=== PATIENT | male | born 1950 | race Caucasian/White ===

== ENCOUNTER 2019-04-10 11:24 | Emergency (ER) | payer MEDICARE, OTHER ==
[2019-04-10 12:06] VITALS: BP 176/112; PULSE 98
--- NOTE | 2019-04-10 12:18 | EDM.PDOC ---
ED HPI GENERAL MEDICAL PROBLEM - General Chief Complaint: Lower Extremity Injury/Pain Stated Complaint: lower leg/ankle pain left side Time Seen by Provider: 04/10/19 12:00 Source of Information: Reports: Patient, Family History Limitations: Reports: No Limitations - History of Present Illness INITIAL COMMENTS - FREE TEXT/NARRATIVE: 68-year-old male is in for an evaluation of an injury to his left lower leg. He has been struggling with a chronic Achilles strain or partial tear, and last night he missed the foot step on a stool and slipped off jamming his foot into the floor and sustaining an injury to the back of his left foot. He had swelling overnight and pain, this morning it seems better but he wanted to be checked. He is able to ambulate with some pain. No other injury. Onset: Sudden Duration: Hour(s): (Over 12 hours ago) Location: Reports: Lower Extremity, Left Worsens with: Reports: Other (Ambulating is painful) Associated Symptoms: Reports: Other (Fairly significant swelling of the lower left leg) - Related Data Allergies Allergy/AdvReac Type Severity Reaction Status Date / Time No Known Allergies Allergy Verified 04/10/19 11:46 Home Meds: Home Meds Insulin Glarg,Human.Rec.Analog [Lantus Solostar] 1 injection SQ BEDTIME [History] Insulin Lispro [Humalog] 1 injection SQ TID 12/26/13 [History] metFORMIN [Glucophage] 1 tab PO BID 12/26/13 [History] Past Medical History Endocrine/Metabolic History: Reports: Diabetes, Type II - Past Surgical History GI Surgical History: Reports: Appendectomy, Hernia, Inguinal Social & Family History - Tobacco Use Smoking Status *Q: Never Smoker Review of Systems - Review of Systems Review Of Systems: See Below Constitutional: Denies: Fever Respiratory: Denies: Shortness of Breath Cardiovascular: Denies: Chest Pain Skin: Denies: Bruising Neurological: Reports: Other (Significant peripheral neuropathy which is chronic ) ED EXAM, GENERAL - Physical Exam Exam: See Below Exam Limited By: No Limitations General Appearance: Alert, No Apparent Distress Head: Atraumatic Respiratory/Chest: No Respiratory Distress Extremities: Other (Exam is otherwise limited to the lower extremities. He has just a trace of edema around the ankle of the right leg, the left leg has 1+ edema through the foot and the lower extremity distal to the knee. He has palpation tenderness along the gastrocnemius and the proximal Achilles tendon, however there is no deficit. He has fairly strong plantar flexion of the foot with only mild discomfort.) Course - Vital Signs Last Recorded V/S: Last Vital Signs Temp 97.2 F 04/10/19 12:01 Pulse 98 04/10/19 12:01 Resp 20 04/10/19 12:01 BP 176/112 H 04/10/19 12:01 Pulse Ox 98 04/10/19 12:01 - Orders/Labs/Meds Orders: Active Orders 24 hr Category Date Time Status DME for Discharge [COMM] Stat Oth 04/10/19 12:13 Ordered - Re-Assessments/Exams Free Text/Narrative Re-Assessment/Exam: 04/10/19 12:17 I suspect this patient has acutely exacerbated a chronic Achilles tendon injury. I do not feel there is a complete tear. He was placed in a walking boot for the next several days, and then to follow-up with his primary care provider next week to reassess the injury. An MRI may be necessary for definitive diagnosis. Departure - Departure Time of Disposition: 12:47 Disposition: Home, Self-Care 01 Clinical Impression: Gastrocnemius strain, left Qualifiers: Encounter type: initial encounter Qualified Code(s): S86.112A - Strain of other muscle(s) and tendon(s) of posterior muscle group at lower leg level, left leg, initial encounter - Discharge Information Instructions: Muscle Strain, [id number] Referrals: PCP,None [Primary Care Provider] - Forms: ED Department Discharge Care Plan Goals: Wear boot for the next few days and increase activity as tolerated. Consider rechecking with your primary provider next week for reassessment to consider whether further testing is needed. Elevation and compression will help with swelling. Sepsis Event Note - Evaluation Sepsis Screening Result: No Definite Risk - Focused Exam Vital Signs: Vital Signs Temp Pulse Resp BP Pulse Ox 04/10/19 12:01 97.2 F 98 20 176/112 H 98 Date Exam was Performed: 04/10/19 Time Exam was Performed: 14:06 - My Orders Last 24 Hours: My Active Orders 04/10/19 12:13 DME for Discharge [COMM] Stat - Assessment/Plan Last 24 Hours: My Active Orders 04/10/19 12:13 DME for Discharge [COMM] Stat
== END 2019-04-10 12:47 | disposition home or self-care (01) ==
LOC: JP.ED 11:24
DX: S86.112A Strain of other muscle(s) and tendon(s) of posterior muscle group at lower leg level, left leg, initial encounter (principal); E11.9 Type 2 diabetes mellitus without complications; Z79.4 Long term (current) use of insulin; W01.0XXA Fall on same level from slipping, tripping and stumbling without subsequent striking against object, initial encounter; Y92.009 Unspecified place in unspecified non-institutional (private) residence as the place of occurrence of the external cause
CPT/HCPCS: 99283

== ENCOUNTER 2019-08-07 09:21 | Emergency (ER) | payer MEDICARE ==
--- NOTE | 2019-08-07 10:24 | EDM.PDOC ---
ED HPI GENERAL MEDICAL PROBLEM - General Chief Complaint: Neurological Problem Stated Complaint: DIZZY, NO BALANCE, HEART PALPS Time Seen by Provider: 08/07/19 09:50 Source of Information: Reports: Patient History Limitations: Reports: No Limitations - History of Present Illness INITIAL COMMENTS - FREE TEXT/NARRATIVE: This is a 68-year-old gentleman with a history of diabetes who presents with concerns of dizziness and palpitations. He reports he has been having intermittent dizziness after bending down to touch the ground while doing various tasks such as picking up branches for several months. He did see his PCP for this, but reports that did not do much of a work-up. They thought perhaps he had a middle ear infection. Today he was walking out of his home to do chores around the [place] he [place], after some time he stopped to bend down to chart picker a stick, and upon standing felt as if he is going to pass out and had difficulty walking because this was so profound. He reports that he took his pulse and it was bounding. He did not have any difficulty with coordination or gait, just profound feeling of passing out. He went to return to his home was able to walk normal for some time, and the sensation returned. He denies any chest pain with this. No shortness of breath. His symptoms are not reliably reproducible with position. He has no history of cardiac disease. No recent medication changes. In route to the hospital he had about a minute of chest pressure. He is rehabbing some injuries to his leg but otherwise feeling well. - Related Data Allergies Allergy/AdvReac Type Severity Reaction Status Date / Time statins Allergy Other Uncoded 08/07/19 10:55 Home Meds: Home Meds Insulin Glarg,Human.Rec.Analog [Lantus Solostar] 15 units SQ BEDTIME 12/26/13 [ History] Insulin Lispro [Humalog] 20 unit SQ BID 12/26/13 [History] metFORMIN [Glucophage] 500 mg PO BID 12/26/13 [History] Past Medical History Cardiovascular History: Reports: High Cholesterol Genitourinary History: Reports: Renal Calculus Endocrine/Metabolic History: Reports: Diabetes, Type II, Obesity/BMI 30+ - Past Surgical History GI Surgical History: Reports: Appendectomy, Hernia, Inguinal Social & Family History - Tobacco Use Smoking Status *Q: Never Smoker - Caffeine Use Caffeine Use: Reports: Coffee Other Caffeine Use: couple cups coffee daily - Recreational Drug Use Recreational Drug Use: No ED ROS GENERAL - Review of Systems Review Of Systems: See Below Constitutional: Reports: No Symptoms HEENT: Reports: No Symptoms Respiratory: Reports: No Symptoms. Denies: Shortness of Breath Cardiovascular: Reports: Palpitations. Denies: Dyspnea on Exertion Endocrine: Reports: No Symptoms GI/Abdominal: Reports: No Symptoms : Reports: No Symptoms Musculoskeletal: Reports: No Symptoms Skin: Reports: No Symptoms Neurological: Reports: No Symptoms. Denies: Trouble Speaking, Change in Speech , Gait Disturbance Psychiatric: Reports: No Symptoms Hematologic/Lymphatic: Reports: No Symptoms Immunologic: Reports: No Symptoms ED EXAM, GENERAL - Physical Exam Exam: See Below Exam Limited By: No Limitations General Appearance: Alert, No Apparent Distress Eye Exam: Bilateral Eye: EOMI Ears: Normal External Exam Nose: Normal Inspection Throat/Mouth: Normal Inspection Head: Atraumatic, Normocephalic Neck: Normal Inspection. No: Carotid Bruit Respiratory/Chest: Lungs Clear Cardiovascular: Regular Rate, Rhythm, No Murmur GI/Abdominal: Soft, Non-Tender Back Exam: Normal Inspection Extremities: Normal Inspection Neurological: Alert, Oriented, CN II-XII Intact, Other (Cranial nerves II through XII are grossly intact. Speech is fluid. Extraocular movements are intact without nystagmus. Finger-nose testing and rapid alternating hand movements are normal. Strength in the extremities is 5/5 and symmetric.) Skin Exam: Warm, Dry Course - Vital Signs Last Recorded V/S: Last Vital Signs Temp 36.2 C 08/07/19 13:16 Pulse 71 08/07/19 13:16 Resp 17 08/07/19 13:16 BP 133/69 08/07/19 13:16 Pulse Ox 96 08/07/19 13:16 - Orders/Labs/Meds Labs: Laboratory Tests 08/07/19 08/07/19 08/07/19 Range/Units 10:16 10:16 10:16 WBC 7.5 (4.5-11.0) K/uL RBC 5.14 (4.30-5.90) M/uL Hgb 15.1 H D (12.0-15.0) g/dL Hct 43.2 (40.0-54.0) % MCV 84 (80-98) fL MCH 29 (27-31) pg MCHC 35 (32-36) % Plt Count 201 (150-400) K/uL Sodium 136 L (140-148) mmol/L Potassium 4.2 (3.6-5.2) mmol/L Chloride 101 (100-108) mmol/L Carbon Dioxide 21 (21-32) mmol/L Anion Gap 18.2 H (5.0-14.0) mmol/L BUN 16 (7-18) mg/dL Creatinine 1.2 (0.8-1.3) mg/dL Est Cr Clr Drug Dosing 78.08 mL/min Estimated GFR (MDRD) > 60 (>60) Glucose 143 H (74-106) mg/dL Calcium 8.5 (8.5-10.1) mg/dL Total Bilirubin 0.6 (0.2-1.0) mg/dL AST 38 H D (15-37) U/L ALT 82 H (12-78) U/L Alkaline Phosphatase 91 (46-116) U/L Troponin I < 0.017 (0.000-0.056) ng/mL Total Protein 6.8 (6.4-8.2) g/dL Albumin 3.7 (3.4-5.0) g/dL Globulin 3.1 (2.3-3.5) g/dL Albumin/Globulin Ratio 1.2 (1.2-2.2) 08/07/19 Range/Units 13:00 WBC (4.5-11.0) K/uL RBC (4.30-5.90) M/uL Hgb (12.0-15.0) g/dL Hct (40.0-54.0) % MCV (80-98) fL MCH (27-31) pg MCHC (32-36) % Plt Count (150-400) K/uL Sodium (140-148) mmol/L Potassium (3.6-5.2) mmol/L Chloride (100-108) mmol/L Carbon Dioxide (21-32) mmol/L Anion Gap (5.0-14.0) mmol/L BUN (7-18) mg/dL Creatinine (0.8-1.3) mg/dL Est Cr Clr Drug Dosing mL/min Estimated GFR (MDRD) (>60) Glucose (74-106) mg/dL Calcium (8.5-10.1) mg/dL Total Bilirubin (0.2-1.0) mg/dL AST (15-37) U/L ALT (12-78) U/L Alkaline Phosphatase (46-116) U/L Troponin I < 0.017 (0.000-0.056) ng/mL Total Protein (6.4-8.2) g/dL Albumin (3.4-5.0) g/dL Globulin (2.3-3.5) g/dL Albumin/Globulin Ratio (1.2-2.2) Meds: Medications Discontinued Medications Generic Name Dose Route Start Last Admin Trade Name Aaron PRN Reason Stop Dose Admin Lactated Ringer's 1,000 mls @ 1,000 mls/hr 08/07/19 10:32 08/07/19 10:39 Ringers, Lactated IV 08/07/19 11:31 1,000 mls/hr BOLUS ONE Administration - Re-Assessments/Exams Free Text/Narrative Re-Assessment/Exam: This is a 68-year-old who presents with symptoms seemingly most consistent with presyncope. He does report an ongoing history of similar symptoms with change in position, so cannot exclude that he is describing vertigo. On exam he has normal vitals. He is completely neurologically intact. He has no murmur or carotid bruit. His EKG is generally unremarkable, sinus rhythm, no ischemia, does have some prolongation of QT. Given he had some chest pressure and his description of symptoms we will check a troponin to look for cardiac ischemia. We will also check his basic electrolytes and CBC. We will monitor him on telemetry. We will need to do an ambulatory laboratory trial and discuss delta troponin testing. 08/07/19 10:28 Free Text/Narrative Re-Assessment/Exam: Re-assess patient, feeling well. Labs re-assuring Would like to stay for delta troponin Will trial ambulation following fluid bolus 08/07/19 11:01 Free Text/Narrative Re-Assessment/Exam: Delta trop negative Ambulating with stable gait Symptoms largely resolved, some continued dizziness that seem position - this is seemingly more consistent with vertigo. Concern for posterior CVA low. Safe for discharge, will follow up with PCP 08/07/19 13:44 Departure - Departure Time of Disposition: 13:40 Disposition: Home, Self-Care 01 Clinical Impression: Vertigo Instructions: Near-Syncope, [id number], Dizziness Referrals: PCP,None [Primary Care Provider] - Forms: ED Department Discharge Additional Instructions: We did not find a cause for your symptoms on your work up in the ED We suspect you are experiencing vertigo A medication called meclizine may be useful for persistent symptoms, you can discuss this with your primary doctor Please return to the ER if you symptoms become more severe or are associated by difficulty with speech, weakness, or clumsiness Sepsis Event Note - Evaluation Sepsis Screening Result: No Definite Risk - Focused Exam Vital Signs: Vital Signs Temp Pulse Resp BP Pulse Ox 08/07/19 13:16 36.2 C 71 17 133/69 96 08/07/19 11:40 75 16 151/87 H 97 08/07/19 10:32 73 14 135/83 98 08/07/19 09:35 36.4 C 93 19 172/97 H 98 Date Exam was Performed: 08/07/19 Time Exam was Performed: 13:36
[2019-08-07] MEDS ORDERED: Lactated Ringers 1,000 ML IV ONE (10:32)
[2019-08-07 13:17] VITALS: BP 133/69; PULSE 71
== END 2019-08-07 14:22 | disposition home or self-care (01) ==
LOC: JP.ED 09:21
DX: R42 Dizziness and giddiness (principal); E11.9 Type 2 diabetes mellitus without complications; E66.9 Obesity, unspecified; Z68.33 Body mass index [BMI] 33.0-33.9, adult; Z79.4 Long term (current) use of insulin; Z88.8 Allergy status to other drugs, medicaments and biological substances
CPT/HCPCS: 36415; 80053; 84484; 85027; 96360; 99283; 99284; J7120; 93010

== ENCOUNTER 2020-09-17 18:57 | Emergency (ER) | payer MEDICARE ==
[2020-09-17 19:21] VITALS: BP 158/86; PULSE 78
--- NOTE | 2020-09-17 19:42 | EDM.PDOC ---
ED HPI GENERAL MEDICAL PROBLEM - General Chief Complaint: Genitourinary Problem Stated Complaint: UTI Time Seen by Provider: 09/17/20 19:42 Source of Information: Reports: Patient, RN Notes Reviewed History Limitations: Reports: No Limitations - History of Present Illness INITIAL COMMENTS - FREE TEXT/NARRATIVE: Samuel presents today for complains of burning and frequent urination for 3 to 5 days. He states he has been drinking more water, taking grapefruit seed extract and colloidal silver to help prevent infection. He states he now feels like he did when he had a urinary tract infection in the past. He denies fever, chills, nausea, vomiting, diarrhea, constipation or other concerns. Bladder Pain Score (Numeric/FACES): 8 - Related Data Allergies Allergy/AdvReac Type Severity Reaction Status Date / Time statins Allergy Other Uncoded 09/17/20 19:18 Home Meds: Home Meds Insulin Glarg,Human.Rec.Analog [Lantus Solostar] 15 units SQ BEDTIME 12/26/13 [History] Insulin Lispro [Humalog] 20 unit SQ DAILY 12/26/13 [History] metFORMIN [Glucophage] 500 mg PO BID 12/26/13 [History] Terazosin [Hytrin] 1 mg PO BEDTIME 09/17/20 [History] Past Medical History Cardiovascular History: Reports: High Cholesterol Genitourinary History: Reports: Prostate Disorder, Renal Calculus Musculoskeletal History: Reports: Other (See Below) Other Musculoskeletal History: torn achilles tendon Endocrine/Metabolic History: Reports: Diabetes, Type II, Obesity/BMI 30+ - Infectious Disease History Infectious Disease History: Reports: Chicken Pox, Measles, Mumps - Past Surgical History GI Surgical History: Reports: Appendectomy, Hernia, Inguinal Social & Family History - Tobacco Use Tobacco Use Status *Q: Never Tobacco User Second Hand Smoke Exposure: No - Caffeine Use Caffeine Use: Reports: Coffee, Soda Other Caffeine Use: couple cups coffee daily - Recreational Drug Use Recreational Drug Use: No ED ROS GENERAL - Review of Systems Review Of Systems: See Below Constitutional: Reports: No Symptoms HEENT: Reports: No Symptoms Respiratory: Reports: No Symptoms Cardiovascular: Reports: No Symptoms Endocrine: Reports: No Symptoms GI/Abdominal: Reports: No Symptoms : Reports: Dysuria, Frequency Musculoskeletal: Reports: No Symptoms Skin: Reports: No Symptoms Neurological: Reports: No Symptoms Psychiatric: Reports: No Symptoms Hematologic/Lymphatic: Reports: No Symptoms Immunologic: Reports: No Symptoms ED EXAM, RENAL/ - Physical Exam Exam: See Below Exam Limited By: Intoxication General Appearance: Alert, WD/WN, No Apparent Distress Head: Atraumatic, Normocephalic Cardiovascular: Normal Peripheral Pulses, Regular Rate, Rhythm, No Edema, No Gallop, No Murmur, No Rub GI/Abdominal: Normal Bowel Sounds, Soft, Non-Tender, No Organomegaly, No Distention, No Mass. No: Guarding, Rigid, Rebound, Tender (Male) Exam: Circumcised. No: Inguinal Lymphadenopathy, Penile Lesions, Rash, Scrotal Swelling, Scrotum Tenderness (L), Scrotum Tenderness (R), Suprapubic Fullness, Urethral Discharge Back Exam: Normal Inspection, Full Range of Motion. No: CVA Tenderness (R), CVA Tenderness (L), Muscle Spasm, Paraspinal Tenderness Extremities: Normal Inspection, Normal Range of Motion, Non-Tender, No Pedal Edema, Normal Capillary Refill Neurological: Alert, Oriented, Normal Cognition, Normal Gait, No Motor/Sensory Deficits Psychiatric: Normal Affect, Normal Mood Skin Exam: Warm, Dry, Intact, Normal Color, No Rash Lymphatic: No Adenopathy Course - Vital Signs Last Recorded V/S: Last Vital Signs Temp 36.5 C 09/17/20 19:20 Pulse 78 09/17/20 19:20 Resp 16 09/17/20 19:20 BP 158/86 H 09/17/20 19:20 Pulse Ox 97 09/17/20 19:20 - Orders/Labs/Meds Orders: Active Orders 24 hr Category Date Time Status CULTURE URINE [RM] Stat Lab 09/17/20 20:12 Received Labs: Laboratory Tests 09/17/20 Range/Units 19:10 Urine Color Yellow (YELLOW) Urine Appearance Clear (CLEAR) Urine pH 5.5 (5.0-8.0) Ur Specific [place] 1.020 (1.008-1.030) Urine Protein Negative (NEGATIVE) mg/dL Urine Glucose (UA) 500 H (NEGATIVE) mg/dL Urine Ketones Negative (NEGATIVE) mg/dL Urine Occult Blood Negative (NEGATIVE) Urine Nitrite Negative (NEGATIVE) Urine Bilirubin Negative (NEGATIVE) Urine Urobilinogen 0.2 (0.2-1.0) EU/dL Ur Leukocyte Esterase Negative (NEGATIVE) Urine RBC 0-5 (0-5) Urine WBC 0-5 (0-5) Ur Epithelial Cells Rare Amorphous Sediment Not seen Urine Bacteria Not seen Urine Mucus Not seen Patient lab work reviewed with patient. He was advised his current UA does not indicate need for antibiotic intervention. He was advised to monitor his blood sugar, work on diet and follow up with primary in 2 days. We will culture the urine as he has been taking herbal supplements for infection. Patient refuses further laboratory work up or additional care, requests antibiotic. He can take cephalexin as directed - higher bladder concentration of medication. Departure - Departure Time of Disposition: 20:07 Disposition: Home, Self-Care 01 Clinical Impression: Dysuria, Glucosuria - Discharge Information *PRESCRIPTION DRUG MONITORING PROGRAM REVIEWED*: No *COPY OF PRESCRIPTION DRUG MONITORING REPORT IN PATIENT ADAN: No Instructions: Dysuria Referrals: PCP,None [Primary Care Provider] - Forms: ED Department Discharge Additional Instructions: You have been evaluated and treated for dysuria. UA does not show active urinary tract infection with current use of grapefruit seed extract and colloidal silver. You can take cephalexin as directed, will need to stop use of culture negative. You do have elevated sugar in your urine. Work on management of diabetes, monitor blood sugars. Follow up with your primary provider for recheck in 3 days. Urine culture ordered. Return for any worsening, issues or concerns. Sepsis Event Note (ED) - Evaluation Sepsis Screening Result: No Definite Risk - Focused Exam Vital Signs: Vital Signs Temp Pulse Resp BP Pulse Ox 09/17/20 19:20 36.5 C 78 16 158/86 H 97 - My Orders Last 24 Hours: My Active Orders 09/17/20 20:12 CULTURE URINE [RM] Stat - Assessment/Plan Last 24 Hours: My Active Orders 09/17/20 20:12 CULTURE URINE [RM] Stat Assessment:: Dysuria Glucosuria Plan: Patient evaluated and treated for dysuria. UA does not show active urinary tract infection with current use of grapefruit seed extract and colloidal silver. He can take cephalexin as directed, will need to stop use of culture negative. Noted elevated sugar in your urine. Work on management of diabetes, monitor blood sugars. Follow up with primary provider for recheck in 3 days. Urine culture ordered. Return for any worsening, issues or concerns.
== END 2020-09-17 20:27 | disposition home or self-care (01) ==
LOC: JP.ED 18:57
DX: R30.0 Dysuria (principal); R81 Glycosuria; E11.9 Type 2 diabetes mellitus without complications; E66.9 Obesity, unspecified; Z68.32 Body mass index [BMI] 32.0-32.9, adult; Z91.048 Other nonmedicinal substance allergy status; Z79.4 Long term (current) use of insulin
CPT/HCPCS: 81001; 87086; 99283

== ENCOUNTER 2020-11-05 00:30 | Emergency (ER) | payer MEDICARE ==
--- NOTE | 2020-11-05 00:52 | EDM.PDOC ---
ED HPI GENERAL MEDICAL PROBLEM - General Chief Complaint: Genitourinary Problem Stated Complaint: TROUBLE URINATING Time Seen by Provider: 11/05/20 01:00 Source of Information: Reports: Patient History Limitations: Reports: No Limitations - History of Present Illness INITIAL COMMENTS - FREE TEXT/NARRATIVE: Samuel is a 70-year-old male presenting to the ED with difficulty urinating. Patient has had some issues on and off and underwent a biopsy of his prostate at [facility] in [place] where he was told he had "the largest prostate that that doctor and have her examined". The patient had been doing fine but today has been having difficulty urinating with the ability to only have a couple dribbles of urine at a time. He has had some burning with urination. The patient drank a fair amount of beet juice today so his urine is red but he does not believe that his blood. He denies any fever, chills, backache or flank pain. Has had no nausea, vomiting, or diarrhea. He has had no difficulty with constipation. - Related Data Allergies Allergy/AdvReac Type Severity Reaction Status Date / Time statins Allergy Other Uncoded 11/05/20 01:19 Home Meds: Home Meds Insulin Glarg,Human.Rec.Analog [Lantus Solostar] 15 units SQ BEDTIME 12/26/13 [History] Insulin Lispro [Humalog] 20 unit SQ DAILY 12/26/13 [History] metFORMIN [Glucophage] 500 mg PO BID 12/26/13 [History] Terazosin [Hytrin] 1 mg PO BEDTIME 09/17/20 [History] Past Medical History Cardiovascular History: Reports: High Cholesterol Genitourinary History: Reports: Prostate Disorder, Renal Calculus Musculoskeletal History: Reports: Other (See Below) Other Musculoskeletal History: torn achilles tendon Endocrine/Metabolic History: Reports: Diabetes, Type II, Obesity/BMI 30+ - Infectious Disease History Infectious Disease History: Reports: Chicken Pox, Measles, Mumps - Past Surgical History GI Surgical History: Reports: Appendectomy, Hernia, Inguinal Social & Family History - Caffeine Use Caffeine Use: Reports: Coffee, Soda Other Caffeine Use: couple cups coffee daily ED ROS GENERAL - Review of Systems Review Of Systems: See Below Constitutional: Reports: No Symptoms Respiratory: Reports: No Symptoms Cardiovascular: Reports: No Symptoms GI/Abdominal: Reports: Abdominal Pain (Suprapubic pain) : Reports: Dysuria (Burning with urination), Frequency (Only able to void small amounts), Pain, Urgency, Urinary Retention ED EXAM, RENAL/ - Physical Exam Exam: See Below Exam Limited By: No Limitations General Appearance: Alert, Anxious, Mild Distress GI/Abdominal: Soft, Tender (Suprapubic tenderness). No: Guarding, Rebound (Male) Exam: Circumcised, Suprapubic Fullness (The bladder percusses up to the umbilicus). No: Scrotal Swelling, Testicular Tenderness (L), Testicular Tenderness (R), Urethral Discharge Neurological: Alert, Oriented, Normal Cognition, No Motor/Sensory Deficits Course - Vital Signs Last Recorded V/S: Last Vital Signs Temp 36.3 C 11/05/20 01:25 Pulse 70 11/05/20 01:37 Resp 17 11/05/20 01:37 BP 120/75 11/05/20 01:37 Pulse Ox 97 11/05/20 01:37 - Orders/Labs/Meds Orders: Active Orders 24 hr Category Date Time Status Bravo Catheter Insertion [Insert Urinary Catheter] [OM. Care 11/05/20 01:15 Ordered PC] Q24H Urinary Catheter Assessment [RC] ASDIRECTED Care 11/05/20 01:01 Active Labs: Laboratory Tests 11/05/20 Range/Units 01:19 Urine Color Brown A (YELLOW) Urine Appearance Cloudy A (CLEAR) Urine pH 5.5 (5.0-8.0) Ur Specific [place] 1.015 (1.008-1.030) Urine Protein >=300 H (NEGATIVE) mg/dL Urine Glucose (UA) Negative (NEGATIVE) mg/dL Urine Ketones Negative (NEGATIVE) mg/dL Urine Occult Blood Large H (NEGATIVE) Urine Nitrite Negative (NEGATIVE) Urine Bilirubin Small H (NEGATIVE) Urine Urobilinogen 0.2 (0.2-1.0) EU/dL Ur Leukocyte Esterase Negative (NEGATIVE) Urine RBC >100 H (0-5) Urine WBC 0-5 (0-5) Ur Epithelial Cells Few Amorphous Sediment Not seen Urine Bacteria Few Urine Mucus Not seen Meds: Medications Discontinued Medications Generic Name Dose Route Start Last Admin Trade Name Freq PRN Reason Stop Dose Admin Lidocaine HCl 10 ml 11/05/20 01:01 Lidocaine 2% Jelly 10 Ml Urojet MUCMEM 11/05/20 01:02 ONETIME ONE Lidocaine HCl Confirm 11/05/20 01:01 Lidocaine 2% Jelly 10 Ml Urojet Administered 11/05/20 01:02 Dose 10 ml .ROUTE .[facility] - Re-Assessments/Exams Free Text/Narrative Re-Assessment/Exam: 11/05/20 01:18 Urojet was instilled into the urethra and a coud Bravo catheter was placed across the prostate into the bladder with immediate flow of reddish urine. We will send urinalysis to evaluate for possible infection. The patient will need to have the catheter left in place as he is having significant urinary retention with nearly 2 L of urine in the bladder on bladder scan. He will need to follow-up with the [facility] for evaluation with urology. 11/05/20 01:42 urinalysis shows significant hematuria without evidence of infection. Departure - Departure Time of Disposition: 01:42 Disposition: Home, Self-Care 01 Clinical Impression: Retention of urine Benign prostatic hyperplasia Qualifiers: Lower urinary tract symptom presence: symptoms present Lower urinary tract symptom detail: urinary retention Qualified Code(s): N40.1 - Benign prostatic hyperplasia with lower urinary tract symptoms - Discharge Information Instructions: Indwelling Urinary Catheter Care, Adult, Benign Prostatic Hyperplasia, Acute Urinary Retention, Male, [id number] Referrals: Haris Youngblood MD [Primary Care Provider] - Forms: ED Department Discharge Care Plan Goals: I have placed a consult for urology at the [facility]. Hopefully somebody from the clinic will contact you to arrange this. Please leave the catheter in place until your follow-up. Nursing will instruct you on management of the catheter. Your urinalysis today showed a fair amount of blood in your urine but no evidence for acute infection. Sepsis Event Note (ED) - Focused Exam Vital Signs: Vital Signs Temp Pulse Resp BP Pulse Ox 11/05/20 01:37 70 17 120/75 97 11/05/20 01:25 36.3 C 69 19 148/80 H 97 11/05/20 01:23 36.3 C 69 19 148/80 H 97 - Problem List & Annotations (1) Retention of urine SNOMED Code(s): 505036229 Code(s): R33.9 - RETENTION OF URINE, UNSPECIFIED Status: Acute Priority: Medium Current Visit: Yes (2) Benign prostatic hyperplasia SNOMED Code(s): 346211659 Code(s): N40.0 - BENIGN PROSTATIC HYPERPLASIA WITHOUT LOWER URINRY TRACT SYMP Status: Acute Priority: Medium Current Visit: Yes Qualifiers: Lower urinary tract symptom presence: symptoms present Lower urinary tract symptom detail: urinary retention Qualified Code(s): N40.1 - Benign prostatic hyperplasia with lower urinary tract symptoms; R33.8 - Other retention of urine - Problem List Review Problem List Initiated/Reviewed/Updated: Yes - My Orders Last 24 Hours: My Active Orders 11/05/20 01:01 Urinary Catheter Assessment [RC] ASDIRECTED 11/05/20 01:15 Bravo Catheter Insertion [Insert Urinary Catheter] [OM.PC] Q24H - Assessment/Plan Last 24 Hours: My Active Orders 11/05/20 01:01 Urinary Catheter Assessment [RC] ASDIRECTED 11/05/20 01:15 Bravo Catheter Insertion [Insert Urinary Catheter] [OM.PC] Q24H
[2020-11-05] MEDS ORDERED: Lidocaine 2% Jelly 10 ML Urojet ONE (01:01)
[2020-11-05] MEDS ORDERED: Lidocaine 2% Jelly 10 ML Urojet MUCMEM ONE (01:01)
[2020-11-05 01:37] VITALS: BP 120/75; PULSE 70
== END 2020-11-05 02:11 | disposition home or self-care (01) ==
LOC: JP.ED 00:30
DX: N40.1 Benign prostatic hyperplasia with lower urinary tract symptoms (principal); R33.9 Retention of urine, unspecified; E78.00 Pure hypercholesterolemia, unspecified; E11.9 Type 2 diabetes mellitus without complications; E66.9 Obesity, unspecified; Z68.30 Body mass index [BMI] 30.0-30.9, adult; Z88.8 Allergy status to other drugs, medicaments and biological substances; Z79.4 Long term (current) use of insulin; Z79.899 Other long term (current) drug therapy
CPT/HCPCS: 51702; 81001; 99283-25

== ENCOUNTER 2021-10-09 07:33 | Day surgery (SDC) | payer MEDICARE ==
[~2021-10-09 07:33] MED LIST: Bupivacaine 0.5% 50 ML MDV ONE; Lidocaine 1% with EPINEPHrine 1:100,000 50 ML MDV ONE; Midazolam 1 MG/ML 2 ML SDV ONE; Propofol 200 MG/20 ML SDV ONE; fentaNYL 100 MCG/2 ML SDV ONE
[2021-10-09] MEDS ORDERED: Acetaminophen 500 MG Tab PO ONE (07:45)
[2021-10-09] MEDS: Dextrose 5%-Lactated Ringers 1,000 ML IV SCH ×2 (08:13→22:42)
[2021-10-09] MEDS ORDERED: ceFAZolin 2 GM in Premix Bag 1 BAG IV ONE (08:30)
[2021-10-09 08:32] LABS: ESTIMATED GFR > 60 (>60)
[2021-10-09] MEDS ORDERED: fentaNYL 100 MCG/2 ML SDV ONE (09:43)
[2021-10-09] MEDS ORDERED: Propofol 200 MG/20 ML SDV ONE (09:44)
[2021-10-09] MEDS ORDERED: Ketorolac 30 MG/ML SDV ONE (10:27)
[2021-10-09] MEDS ORDERED: 50% Dextrose in Water 50 ML Syringe IVPUSH PRN ×3 (10:39→11:44)
[2021-10-09] MEDS ORDERED: Glucagon,Human Recombinant 1 MG Vial IM PRN ×2 (10:39→10:49)
[2021-10-09] MEDS ORDERED: Glucose Gel 15 GM in 37.5 GM Tube PO PRN (10:49)
[2021-10-09] MEDS ORDERED: Insulin Lispro 100 Unit/ML 3 ML KwikPen SUBCUT PRN (10:50)
[2021-10-09] MEDS ORDERED: Insulin Lispro 100 Unit/ML 3 ML KwikPen SUBCUT ONE (11:00)
[2021-10-09] MEDS ORDERED: HYDROmorphone 2 MG Tab PO PRN (11:43)
[2021-10-09] MEDS ORDERED: HYDROmorphone 1 MG/ML Syringe IV PRN (12:00)
[2021-10-09] MEDS ORDERED: HYDROmorphone 0.5 MG/0.5 ML Syringe IVPUSH PRN (12:00)
[2021-10-09] MEDS ORDERED: Ondansetron 4 MG/2 ML SDV IVPUSH PRN (12:00)
[2021-10-09] MEDS: Insulin Lispro 100 Unit/ML 3 ML KwikPen SUBCUT SCH ×2 (12:06→16:46)
[2021-10-09] MEDS: Acetaminophen 325 MG Tab PO SCH ×2 (12:09→18:19)
[2021-10-09] MEDS: ceFAZolin 2 GM in Premix Bag 1 BAG IV SCH (16:28)
[2021-10-09] MEDS: metFORMIN 500 MG Tab PO SCH (16:30)
[2021-10-10] MEDS: Acetaminophen 325 MG Tab PO SCH ×2 (00:36→05:31)
[2021-10-10] MEDS: ceFAZolin 2 GM in Premix Bag 1 BAG IV SCH ×2 (00:38→07:46)
[2021-10-10 07:31] VITALS: BP 126/68; PULSE 71
[2021-10-10] MEDS: metFORMIN 500 MG Tab PO SCH (07:46)
[2021-10-10] MEDS: Insulin Lispro 100 Unit/ML 3 ML KwikPen SUBCUT SCH (07:46)
== END 2021-10-10 10:00 | disposition home or self-care (01) ==
LOC: JP.SDS 07:33 → JP.ICU 11:33 → JP.SDS 10-10 10:00
PROVIDERS: ATTEND Surgery
DX: K40.31 Unilateral inguinal hernia, with obstruction, without gangrene, recurrent (principal); E78.1 Pure hyperglyceridemia; G47.33 Obstructive sleep apnea (adult) (pediatric); E66.9 Obesity, unspecified; E11.42 Type 2 diabetes mellitus with diabetic polyneuropathy; Z68.27 Body mass index [BMI] 27.0-27.9, adult; Z79.84 Long term (current) use of oral hypoglycemic drugs; Z79.899 Other long term (current) drug therapy; Z79.4 Long term (current) use of insulin; Z88.8 Allergy status to other drugs, medicaments and biological substances; Z95.810 Presence of automatic (implantable) cardiac defibrillator; Z86.79 Personal history of other diseases of the circulatory system
CPT/HCPCS: 36415; 49521; 80053; 82947; 83735; 83880; 84100; 85027; 88302; A9270; C1713; C1781; J0690; J1815; J1885; J2250; J2704; J3010; J3490; J7121

== ENCOUNTER → 2022-01-28 | Emergency (ER) | payer MEDICARE ==
[2022-02-22 11:21] LABS: ESTIMATED GFR 81 mL/min (>60); TROPONIN I HIGH SENSITIVITY 19.9 pg/mL (<=60.3)
== END ==
LOC: JP.ED 14:28
DX: R55 Syncope and collapse (principal)
CPT/HCPCS: 36415; 71045; 71045-26; 80048; 84484; 85025; 93005; 99284

== ENCOUNTER 2022-06-03 09:41 | Emergency (ER) | payer MEDICARE ==
[2022-06-03 11:36] VITALS: BP 132/76; PULSE 71
== END 2022-06-03 12:32 | disposition home or self-care (01) ==
LOC: JP.ED 09:41
DX: K57.32 Diverticulitis of large intestine without perforation or abscess without bleeding (principal); E11.40 Type 2 diabetes mellitus with diabetic neuropathy, unspecified; E66.9 Obesity, unspecified; Z68.37 Body mass index [BMI] 37.0-37.9, adult; Z88.8 Allergy status to other drugs, medicaments and biological substances; Z79.4 Long term (current) use of insulin; Z87.891 Personal history of nicotine dependence
CPT/HCPCS: 36415; 74176; 74176-26; 80048; 85025; 99283; 99284

== ENCOUNTER 2022-09-20 06:07 | Day surgery (SDC) | payer MEDICARE ==
[2022-09-20 06:32] LABS: HEMATOCRIT 46.2 % (38.4-49.7); HEMOGLOBIN 16.2 g/dL (12.9-16.9); MEAN CORPUSCULAR HEMOGLOBIN 30.2 pg (31.6-35.5); MEAN CORPUSCULAR HGB CONC 35.1 g/dL (31.6-35.5); RED BLOOD CELL COUNT 5.37 M/uL (4.14-5.76); WHITE BLOOD CELL COUNT,WBC 8.4 K/uL (3.2-11.0)
[2022-09-20] MEDS ORDERED: Bupivacaine 0.5% 50 ML MDV ONE (06:45)
[2022-09-20] MEDS ORDERED: Lidocaine 1% with EPINEPHrine 1:100,000 50 ML MDV ONE (06:45)
[2022-09-20] MEDS ORDERED: Bupivacaine 0.5%/EPINEPHrine 1:200,000 50 ML MDV ONE (06:50)
[2022-09-20] MEDS ORDERED: Midazolam 1 MG/ML 2 ML SDV ONE (06:53)
[2022-09-20] MEDS ORDERED: Propofol 200 MG/20 ML SDV ONE ×3 (06:53→08:56)
[2022-09-20] MEDS ORDERED: fentaNYL 100 MCG/2 ML SDV ONE ×2 (06:53→08:16)
[2022-09-20 06:54] LABS: A/G RATIO 1.2 (1.2-2.2); ALANINE AMINOTRANSFERASE,ALT 32 U/L (12-78); ALBUMIN 3.9 g/dL (3.4-5.0); ALKALINE PHOSPHATASE 86 U/L (46-116); ANION GAP 8.4 mmol/L (5.0-14.0); ASPARTATE AMNIOTRANSFERASE,AST 21 U/L (15-37); BILIRUBIN TOTAL 0.6 mg/dL (0.2-1.0); BLOOD UREA NITROGEN,BUN 20 mg/dL (7-18); CALCIUM 9.2 mg/dL (8.5-10.1); CARBON DIOXIDE,CO2 30 mmol/L (21-32); CHLORIDE,CL 103 mmol/L (100-108); EST CRCL DRUG DOSING (CG) 88.49 mL/min; ESTIMATED GFR 80 mL/min (>60); GLUCOSE RANDOM 153 mg/dL (74-106); POTASSIUM,K 4.4 mmol/L (3.6-5.2); PROTEIN TOTAL,TP 7.2 g/dL (6.4-8.2); SODIUM,NA 141 mmol/L (140-148)
[2022-09-20] MEDS: Sodium Chloride 0.9% 1,000 ML IV SCH ×2 (07:00→09:55)
[2022-09-20] MEDS ORDERED: metroNIDAZOLE/Normal Saline 500 MG in Premix Bag 1 BAG IV ONE (07:30)
[2022-09-20] MEDS ORDERED: Ropivacaine 50 ML, dexAMETHasone 8 MG, EPINEPHrine 0.4 MG, Sodium Chloride 0.9% 27.6 ML NERVRT SCH ×4 (07:45)
[2022-09-20] MEDS ORDERED: ceFAZolin 2 GM in Premix Bag 1 BAG IV ONE (08:00)
[2022-09-20] MEDS ORDERED: Ketorolac 30 MG/ML SDV ONE (08:31)
[2022-09-20] MEDS ORDERED: Acetaminophen/HYDROcodone 325-5 MG Tab PO PRN (10:31)
[2022-09-20 12:34] VITALS: BP 125/72; PULSE 82
== END 2022-09-20 13:30 | disposition home or self-care (01) ==
LOC: JP.SDS 06:07
PROVIDERS: ATTEND Surgery
DX: K40.30 Unilateral inguinal hernia, with obstruction, without gangrene, not specified as recurrent (principal); E11.42 Type 2 diabetes mellitus with diabetic polyneuropathy; G47.33 Obstructive sleep apnea (adult) (pediatric); N40.0 Benign prostatic hyperplasia without lower urinary tract symptoms; E66.3 Overweight; Z79.4 Long term (current) use of insulin; Z95.0 Presence of cardiac pacemaker; Z87.891 Personal history of nicotine dependence; Z98.890 Other specified postprocedural states; Z68.26 Body mass index [BMI] 26.0-26.9, adult
CPT/HCPCS: 36415; 49507; 80053; 85027; A9270; C1713; C1781; J0171; J0690; J1100; J1885; J2250; J2704; J2795; J3010; J3490; J7030